=== PATIENT | female | born 1955 | race Caucasian/White ===

== ENCOUNTER 2017-07-07 13:12 | Emergency (ER) | payer MEDICARE, OTHER ==
[2017-07-07 14:10] VITALS: BP 121/55; BMI 26.9
[2017-07-07] MEDS ORDERED: SODIUM CHLORIDE 1,000 ML IV STA ×2 (14:21→16:24)
[2017-07-07] MEDS ORDERED: ACETAMINOPHEN 1000 MG/100 ML VIAL (NON FORMULARY) IVPB ONE (14:22)
[2017-07-07] MEDS ORDERED: ONDANSETRON 4 MG/2 ML VIAL IVPUSH ONE (14:22)
[2017-07-07 14:55] LABS: URINE APPEARANCE SLCLOUDY; URINE BILIRUBIN NEGATIVE (NEGATIVE); URINE BLOOD 2+ (NEGATIVE); URINE COLOR AMBER; URINE GLUCOSE (UA) 3+ (NEGATIVE); URINE KETONE 1+ (NEGATIVE); URINE NITRITE POSITIVE (NEGATIVE); URINE UROBILINOGEN 4.0 E.U/dl mg/dL (0.2-1.0)
[2017-07-07] MEDS ORDERED: ONDANSETRON 4 MG/2 ML VIAL ONE (15:11)
[2017-07-07] MEDS ORDERED: ACETAMINOPHEN INJECTION 100 ML IVPB ONE (15:11)
[2017-07-07 15:16] LABS: BASO % 0.6 % (0-2.0); EOS % 0.3 % (0-4.5); HEMATOCRIT 41.2 % (32.4-45.2); HEMOGLOBIN 13.8 GM/dL (10.7-15.3); LYMPH % 13.8 % (8-40); MCH 29.3 pg (25.7-33.7); MCHC 33.6 g/dl (32.0-36.0); MEAN PLT VOLUME 8.2 fl (7.5-11.1); MONO % 14.1 % (3.8-10.2); NEUT % 71.2 % (42.8-82.8); PLATELET COUNT 194 K/MM3 (134-434); RBC 4.73 M/mm3 (3.60-5.2); RDW 13.5 % (11.6-15.6); WHITE BLOOD COUNT 9.1 K/mm3 (4.0-10.0)
[2017-07-07 15:18] LABS: VENOUS PC02 21.3 mmHg (38-52); VENOUS PH 7.52 (7.32-7.42)
[2017-07-07 15:39] LABS: URINE LEUK ESTERASE 2+ (NEGATIVE); URINE PROTEIN 2+ (NEGATIVE)
[2017-07-07] MEDS ORDERED: CEFTRIAXONE 1 GM in DEXTROSE 5%-WATER - 50 ML IVPB ONE (15:41)
[2017-07-07 15:43] LABS: EPI CELLS RARE /HPF (FEW); URINE BACTERIA MANY /hpf (NONE SEEN)
--- NOTE | 2017-07-07 15:46 | PDOC ---
History of Present Illness - General Chief Complaint: Cold Symptoms Stated Complaint: BLOOD SUGAR PROBLEM Time Seen by Provider: 07/07/17 13:36 History Source: Patient Exam Limitations: No Limitations - History of Present Illness Initial Comments: 07/07/17 15:42 61-year-old female presents to the ED with complaints of myalgia, urinary frequency with dark colored urine along with nausea, chills, and one episode of diarrhea since yesterday. Patient states had a urinary tract infection one year ago and states similar symptoms. Patient denies recent travel, recent illness, cough, sore throat, headache, neck pain, chest pain, or abdominal pain. Timing/Duration: 24 hours Severity: mild, moderate Associated Symptoms: reports: fever/chills Past History - Travel Traveled outside of the country in the last 30 days: No - Past Medical History Allergies/Adverse Reactions: Allergies Allergy/AdvReac Type Severity Reaction Status Date / Time No Known Allergies Allergy Verified 07/07/17 14:05 Home Medications: Ambulatory Orders Nitrofurantoin Monohyd/M-Cryst [Macrobid -] 100 mg PO BID #14 capsule 07/07/17 COPD: No Diabetes: Yes - Surgical History Cholecystectomy: Yes - Suicide/Smoking/Psychosocial Hx Smoking History: Current every day smoker Number of Cigarettes Smoked Daily: 3 Information on smoking cessation initiated: No Patient Lives Alone: No Lives with/in: spouse/SO Review of Systems - Review of Systems Able to Perform ROS?: No Constitutional: Yes: Chills, Weakness HEENTM: No: Symptoms Reported Cardiac (ROS): No: Symptoms Reported ABD/GI: Yes: Diarrhea, Nausea : Yes: Frequency, Other Integumentary: No: Symptoms Reported Neurological: No: Symptoms reported *Physical Exam - Vital Signs Last Vital Signs Temp Pulse Resp BP Pulse Ox 100.6 F H 110 H 18 121/55 07/07/17 14:05 07/07/17 14:05 07/07/17 14:05 07/07/17 14:05 - Physical Exam General Appearance: Yes: Nourished, Appropriately Dressed. No: Apparent Distress HEENT: positive: EOMI, LEELA. negative: Pale Conjunctivae Neck: positive: Supple Respiratory/Chest: positive: Lungs Clear, Normal Breath Sounds. negative: Respiratory Distress, Accessory Muscle Use Cardiovascular: positive: Regular Rhythm, Tachycardia. negative: Murmur Gastrointestinal/Abdominal: positive: Soft. negative: Tenderness Musculoskeletal: negative: CVA Tenderness Integumentary: positive: Normal Color, Warm, Moist Neurologic: positive: Motor Strength 5/5 (ambulatory) ED Treatment Course - LABORATORY CBC & Chemistry Diagram: 07/07/17 14:43 07/07/17 14:43 - ADDITIONAL ORDERS Additional order review: Laboratory Results 07/07/17 07/07/17 14:43 14:43 VBG pH 7.52 H POC VBG pCO2 21.3 L POC VBG pO2 103.0 H Mixed VBG HCO3 17.1 L Urine Color Anjelica Urine Appearance Slcloudy Urine pH 6.0 Ur Specific [place] 1.016 Urine Protein 2+ H Urine Glucose (UA) 3+ H Urine Ketones 1+ H Urine Blood 2+ H Urine Nitrite Positive Urine Bilirubin Negative Urine Urobilinogen 4.0 e.u/dl H 07/07/17 14:43 Influenza Types A,B Antigen ([facility]) - Preliminary Nasopharyngeal Swab - Preliminary 07/07/17 14:43 RBC 4.73 MCV 87.0 MCHC 33.6 RDW 13.5 MPV 8.2 Neutrophils % 71.2 Lymphocytes % 13.8 Monocytes % 14.1 H Eosinophils % 0.3 Basophils % 0.6 - RADIOLOGY Radiology Studies Ordered: Category Date Time Status CHEST X-RAY PORTABLE* [RAD] Stat Radiology 07/07/17 14:21 Ordered - Medications Given in the ED: ED Medications Discontinued Medications Generic Name Dose Route Start Last Admin Trade Name Freq PRN Reason Stop Dose Admin Acetaminophen 1,000 mg 07/07/17 14:22 07/07/17 15:19 Ofirmev Injection - IVPB 07/07/17 14:23 1,000 mg ONCE ONE Administration Sodium Chloride 1,000 mls @ 1,000 mls/hr 07/07/17 14:21 07/07/17 15:19 Normal Saline - IV 07/07/17 15:20 1,000 mls/hr ASDIR STA Administration Ondansetron HCl 4 mg 07/07/17 14:22 07/07/17 15:19 Zofran Injection IVPUSH 07/07/17 14:23 4 mg ONCE ONE Administration Medical Decision Making - Medical Decision Making 07/07/17 15:03 Patient here with complaints of chills, myalgia, weakness, dark colored urine and urinary frequency along with nausea and diarrhea. Patient on exam had no acute findings except for tachycardia low-grade temp. Patient ordered for septic workup including influenza. Patient was ordered IV Tylenol and Zofran. 07/07/17 15:54 Laboratory Tests 07/07/17 07/07/17 07/07/17 14:43 14:43 14:43 WBC 9.1 Hgb 13.8 Hct 41.2 Plt Count 194 Neutrophils % 71.2 VBG pH 7.52 H POC VBG pCO2 21.3 L POC VBG pO2 103.0 H Mixed VBG HCO3 17.1 L Urine Protein 2+ H Urine Glucose (UA) 3+ H Urine Ketones 1+ H Urine Nitrite Positive Ur Leukocyte Esterase Pending Laboratory Tests 07/07/17 07/07/17 14:43 14:43 Sodium 132 L Potassium 3.1 L Chloride 99 Carbon Dioxide 19 L Anion Gap 14 BUN 13 Creatinine 0.6 Random Glucose 251 H Lactic Acid 1.3 Calcium 9.3 Total Bilirubin 1.6 H AST 33 ALT 51 Alkaline Phosphatase 157 H Total Protein 6.6 Albumin 3.0 L 07/07/17 15:55 Patient ordered for 1 g of ceftriaxone. Influenza negative. Patient ordered for second liter of fluid along with K Dur 40 mEq by mouth. 07/07/17 17:12 Patient revitalized and states feeling much better. Patient has approximately 500 mL left in the bag from her second liter of fluid. Patient will be discharged home with Macrobid 07/07/17 17:28 07/07/17 17:29 *DC/Admit/Observation/Transfer Diagnosis at time of Disposition: UTI (urinary tract infection) Qualifiers: Urinary tract infection type: acute cystitis Hematuria presence: with hematuria Qualified Code(s): N30.01 - Acute cystitis with hematuria - Prescriptions Prescriptions: Nitrofurantoin Monohyd/M-Cryst [Macrobid -] 100 mg PO BID #14 capsule - Referrals Referrals: Romy Lutz MD [Primary Care Provider] - - Patient Instructions Printed Discharge Instructions: DI for Urinary Tract Infection (UTI) Additional Instructions: Please take macrobid starting tomorrow. Take Tylenol for fever. Drink plenty of fluids - Post Discharge Activity
[2017-07-07] MEDS ORDERED: CEFTRIAXONE 1 GM/50 ML BAG ONE (15:54)
[2017-07-07 15:57] LABS: ALK PHOS 157 U/L (45-117); ANION GAP 14 (8-16); BILIRUBIN,TOTAL 1.6 mg/dL (0.2-1.0); BLOOD UREA NITROGEN 13 mg/dL (7-18); CALCIUM 9.3 mg/dL (8.5-10.1); CHLORIDE 99 mmol/L (98-107); CO2 19 mmol/L (21-32); CREATININE 0.6 mg/dL (0.55-1.02); GLUCOSE,RANDOM 251 mg/dL (74-106); POTASSIUM 3.1 mmol/L (3.5-5.1); SGOT/AST 33 U/L (15-37); SGPT/ALT 51 U/L (12-78); SODIUM 132 mmol/L (136-145); TOT PROT 6.6 g/dl (6.4-8.2)
[2017-07-07] MEDS ORDERED: POTASSIUM CHLORIDE TABS 20 MEQ TABLET.ER (FP) PO ONE ×2 (16:24→16:28)
[2017-07-07 17:13] VITALS: PULSE 90; TEMP 99
--- NOTE | 2017-07-08 12:30 | EKG ---
Test Reason : Blood Pressure : / mmHG Vent. Rate : 118 BPM Atrial Rate : 118 BPM P-R Int : 136 ms QRS Dur : 078 ms QT Int : 320 ms P-R-T Axes : 043 045 043 degrees QTc Int : 448 ms SINUS TACHYCARDIA WITH PREMATURE ATRIAL COMPLEXES OTHERWISE NORMAL ECG NO PREVIOUS ECGS AVAILABLE Confirmed by LEIGH ANN TURCIOS MD ([id number]) on 07/08/2017 12:30:05 PM Referred By: Confirmed By:LEIGH ANN TURCIOS MD
== END 2017-07-07 18:28 | disposition home or self-care (01) ==
LOC: JER 13:12
PROC: 3E033NZ Introduction of Analgesics, Hypnotics, Sedatives into Peripheral Vein, Percutaneous Approach (ICD-10-PCS; principal; 2017-07-07)
PROC: 3E033GC Introduction of Other Therapeutic Substance into Peripheral Vein, Percutaneous Approach (ICD-10-PCS; 2017-07-07)
DX: N30.01 Acute cystitis with hematuria (principal); E11.9 Type 2 diabetes mellitus without complications; F17.210 Nicotine dependence, cigarettes, uncomplicated
CPT/HCPCS: 36415; 71046-TC; 80053; 81003; 81015; 82803; 83605; 85025; 87040; 87086; 87186; 87804; 93005; 93010; 99283-25

== ENCOUNTER 2020-07-09 09:14 | Emergency (ER) | payer MEDICARE, OTHER ==
[2020-07-09 09:35] VITALS: BMI 30.2
[2020-07-09 10:32] LABS: BASO % 0.6 % (0-2.0); EOS % 1.7 % (0-4.5); HEMATOCRIT 40.4 % (32.4-45.2); LYMPH % 32.4 % (8-40); MCH 30.1 pg (25.7-33.7); MCHC 34.7 g/dl (32.0-36.0); MEAN CELL VOLUME 86.7 fl (80-96); MEAN PLT VOLUME 8.2 fl (7.5-11.1); MONO % 6.1 % (3.8-10.2); NEUT % 59.2 % (42.8-82.8); PLATELET COUNT 264 K/MM3 (134-434); RBC 4.66 M/mm3 (3.60-5.2); RDW 13.4 % (11.6-15.6); WHITE BLOOD COUNT 7.4 K/mm3 (4.0-10.0)
[2020-07-09 10:37] LABS: EPI CELLS >36 /uL (0-25.1); HYALINE CASTS 26 /uL (0-3.1); PH,URINE 5.5 (5.0-8.0); URINE APPEARANCE CLOUDY; URINE BACTERIA >9,000 /uL (0-1359); URINE BILIRUBIN NEGATIVE (NEGATIVE); URINE COLOR YELLOW; URINE GLUCOSE (UA) NEGATIVE (NEGATIVE); URINE KETONE TRACE (NEGATIVE); URINE LEUK ESTERASE 2+ (NEGATIVE); URINE NITRITE POSITIVE (NEGATIVE); URINE PROTEIN TRACE (NEGATIVE); URINE RBC 18 /uL (0-23.9); URINE WBC 562 /uL (0-25.8)
[2020-07-09 10:54] LABS: ALBUMIN 3.8 g/dl (3.4-5.0); CALCIUM 9.3 mg/dL (8.5-10.1)
[2020-07-09 10:55] LABS: BLOOD UREA NITROGEN 13.8 mg/dL (7-18)
[2020-07-09 10:57] LABS: CREATININE 0.6 mg/dL (0.55-1.3)
[2020-07-09 10:59] LABS: BILIRUBIN,TOTAL 0.8 mg/dL (0.2-1); TOT PROT 7.1 g/dl (6.4-8.2)
[2020-07-09 11:59] LABS: URINE CRYSTALS PRESENT /hpf
[2020-07-09 13:01] VITALS: BP 137/81; PULSE 73; TEMP 98.8
== END 2020-07-09 13:56 | disposition home or self-care (01) ==
LOC: JER 09:14
DX: N39.0 Urinary tract infection, site not specified (principal)
CPT/HCPCS: 36415; 74177-TC; 80053; 81003; 85025; 87086; 87186; 99285-25; Q9967

== ENCOUNTER 2020-07-27 14:08 | Emergency (ER) | payer MEDICARE, OTHER ==
[2020-07-27 14:15] VITALS: BP 108/71; PULSE 94; TEMP 97.8; BMI 27.6
[2020-07-27] MEDS ORDERED: SODIUM PHOSPHATE/NA BIPHOS 133 ML ENEMA PR ONE (16:56)
[2020-07-27] MEDS ORDERED: LACTULOSE 20 GM/30 ML UDC (FOR ORAL USE ONLY) PO ONE (16:56)
[2020-07-27] MEDS ORDERED: LACTULOSE 20 GM/30 ML UDC (FOR ORAL USE ONLY) ONE (17:26)
== END 2020-07-27 18:58 | disposition home or self-care (01) ==
LOC: JER 14:08
DX: K59.00 Constipation, unspecified (principal)
CPT/HCPCS: 74019-TC-FY; 99283-25

== ENCOUNTER 2024-06-15 04:07 | Day surgery (SDC) | payer OTHER ==
[2024-06-14 10:12] VITALS: BMI 28.0
[2024-06-15] MEDS ORDERED: LIDOCAINE HCL/PF 1% SDV 5ML VIAL ONE (07:21)
[2024-06-15] MEDS: BUPIVACAINE HCL/PF 0.5% (5MG/ML) 10 ML VIAL IJ ONE ×4 (13:15)
[2024-06-15] MEDS: LIDOCAINE HCL 1% PRESERVATIVE FREE - 30ML VIAL IJ ONE ×2 (13:15)
[2024-06-15] MEDS: IOHEXOL 180 MG/1 ML ML IJ ONE ×2 (13:17)
[2024-06-15] MEDS: TRIAMCINOLONE ACETONIDE 40 MG/ML 10 ML VIAL IJ ONE ×2 (13:19)
[2024-06-15 14:51] VITALS: RESP 20; TEMP 97.3
[2024-06-15 14:52] VITALS: BP 142/81; PULSE 83
[2024-06-15] MEDS ORDERED: ACETAMINOPHEN 500 MG TABLET (FP) PO PRN (18:11)
== END 2024-06-15 14:32 | disposition home or self-care (01) ==
LOC: JASU-SURG 04:07
PROVIDERS: ATTEND Pain Medicine Pain Medicine
PROC: 3E0U3BZ Introduction of Anesthetic Agent into Joints, Percutaneous Approach (ICD-10-PCS; 2024-06-15)
PROC: 3E0U33Z Introduction of Anti-inflammatory into Joints, Percutaneous Approach (ICD-10-PCS; principal; 2024-06-15 11:30)
DX: M16.11 Unilateral primary osteoarthritis, right hip (principal)
CPT/HCPCS: 76000-TC-FY

== ENCOUNTER 2024-09-14 06:59 | Day surgery (SDC) | payer OTHER ==
[2024-09-13 08:03] VITALS: BMI 28.0
[2024-09-14] MEDS ORDERED: LIDOCAINE HCL/PF 1% SDV 5ML VIAL ONE (07:30)
[2024-09-14] MEDS ORDERED: BUPIVACAINE HCL/PF 0.75% 10 ML VIAL ONE (07:30)
[2024-09-14 13:08] VITALS: RESP 18
[2024-09-14 13:56] VITALS: PULSE 76
[2024-09-14] MEDS ORDERED: ACETAMINOPHEN 500 MG TABLET (FP) ONE (13:57)
[2024-09-14] MEDS: ACETAMINOPHEN 500 MG TABLET (FP) PO PRN (14:00)
[2024-09-14 14:50] VITALS: BP 180/80; TEMP 97
== END 2024-09-14 14:50 | disposition home or self-care (01) ==
LOC: JASU-SURG 06:59
PROVIDERS: ATTEND Pain Medicine Pain Medicine
PROC: 3E0T3BZ Introduction of Anesthetic Agent into Peripheral Nerves and Plexi, Percutaneous Approach (ICD-10-PCS; principal; 2024-09-14 13:39)
DX: M47.816 Spondylosis without myelopathy or radiculopathy, lumbar region (principal)
CPT/HCPCS: 76000-TC-FY

== ENCOUNTER 2024-10-06 12:18 | Day surgery (SDC) | payer OTHER ==
[2024-10-04 12:06] VITALS: BMI 28.0
[~2024-10-06 12:18] MED LIST: ACETAMINOPHEN 500 MG TABLET (FP) PO PRN
[2024-10-06 17:10] VITALS: BP 139/56; PULSE 88; RESP 16; TEMP 97.8
== END 2024-10-06 17:10 | disposition home or self-care (01) ==
LOC: JASU-SURG 12:18
PROVIDERS: ATTEND Pain Medicine Pain Medicine
PROC: 3E0R3BZ Introduction of Anesthetic Agent into Spinal Canal, Percutaneous Approach (ICD-10-PCS; 2024-10-06)
PROC: 3E0R33Z Introduction of Anti-inflammatory into Spinal Canal, Percutaneous Approach (ICD-10-PCS; principal; 2024-10-06 11:30)
DX: M48.061 Spinal stenosis, lumbar region without neurogenic claudication (principal); M54.16 Radiculopathy, lumbar region
CPT/HCPCS: 76000-TC-FY

== ENCOUNTER 2024-10-06 17:19 | Observation (INO) | payer OTHER ==
[2024-10-06 18:23] LABS: ABSOLUTE IMMATURE GRANULOCYTES 0.01 x10^3/uL (0.0-0.031); BASOPHILS # 0.03 x10^3/uL (0.01-0.08); EOSINOPHIL % 0.6 % (0.7-5.8); EOSINOPHILS # 0.04 x10^3/uL (0.04-0.36); HEMATOCRIT 40.2 % (34.1-44.9); HEMOGLOBIN 13.6 g/dL (11.2-15.7); MCHC 33.8 g/dl (32.2-35.5); MEAN CELL VOLUME 85.2 fl (79.4-94.8); MEAN PLT VOLUME 9.4 fl (9.4-12.3); MONOCYTE # 0.17 x10^3/uL (0.24-0.86); MONOCYTE % 2.4 % (4.7-12.5); PLATELET COUNT 258 x10^3/uL (182-369); RDW 12.5 % (12.4-16.4)
[2024-10-06 18:44] LABS: POTASSIUM 3.8 mmol/L (3.5-5.1)
[2024-10-06 18:46] LABS: ALBUMIN 3.8 g/dl (3.4-5.0); BLOOD UREA NITROGEN 22.2 mg/dL (7-18); CALCIUM 9.5 mg/dL (8.5-10.1)
[2024-10-06 18:50] LABS: CREATININE 0.9 mg/dL (0.55-1.3)
[2024-10-06 18:51] LABS: BILIRUBIN,TOTAL 0.6 mg/dL (0.2-1); TOT PROT 7.4 g/dl (6.4-8.2)
[2024-10-06] MEDS ORDERED: ACETAMINOPHEN 500 MG TABLET (FP) ONE (20:03)
[2024-10-06] MEDS: ACETAMINOPHEN 500 MG TABLET (FP) PO ONE (20:09)
[2024-10-06] MEDS ORDERED: MORPHINE SULFATE 2 MG/ML SYRINGE IVPUSH PRN (22:40)
[2024-10-06] MEDS ORDERED: DOCUSATE SODIUM 100 MG CAPSULE (FP) PO ONE (23:02)
[2024-10-06] MEDS: POLYETHYLENE GLYCOL (HEALTHYLAX) 3350 17 GM PACKET PO SCH (23:37)
[2024-10-06] MEDS: MAGNESIUM CITRATE 300 ML BOTTLE PO ONE (23:37)
[2024-10-06] MEDS: SENNOSIDES/DOCUSATE COMBO (SENNA PLUS) TABLET (UD) PO SCH (23:37)
[2024-10-07 01:10] VITALS: BMI 28.0
[2024-10-07] MEDS: INSULIN ASPART SLIDING SCALE (NOVOLOG) 1 VIAL SQ SCH (07:52)
[2024-10-07 08:36] LABS: HEMATOCRIT 39.7 % (34.1-44.9); HEMOGLOBIN 13.4 g/dL (11.2-15.7); MCHC 33.8 g/dl (32.2-35.5); MEAN CELL VOLUME 84.8 fl (79.4-94.8); MEAN PLT VOLUME 10.1 fl (9.4-12.3); PLATELET COUNT 230 x10^3/uL (182-369); RDW 12.6 % (12.4-16.4)
[2024-10-07 08:55] LABS: POTASSIUM 4.1 mmol/L (3.5-5.1)
[2024-10-07 09:00] LABS: ALBUMIN 3.6 g/dl (3.4-5.0); BLOOD UREA NITROGEN 23.5 mg/dL (7-18); CALCIUM 9.7 mg/dL (8.5-10.1)
[2024-10-07 09:06] LABS: TOT PROT 7.5 g/dl (6.4-8.2)
[2024-10-07 09:07] LABS: CREATININE 0.9 mg/dL (0.55-1.3)
[2024-10-07 09:10] LABS: BILIRUBIN,TOTAL 0.6 mg/dL (0.2-1)
[2024-10-07] MEDS: LOSARTAN POTASSIUM 25 MG TABLET PO SCH (09:48)
[2024-10-07] MEDS: PANTOPRAZOLE 20 MG TABLET PO SCH (09:48)
[2024-10-07] MEDS: ENOXAPARIN NA (PORCINE) 40 MG/0.4 ML DISP.SYRIN SQ SCH (09:48)
[2024-10-07] MEDS: ACETAMINOPHEN 325 MG TABLET (FP) PO PRN (10:22)
[2024-10-07] MEDS: GABAPENTIN 100 MG CAPSULE PO SCH (14:11)
[2024-10-07] MEDS: oxyCODONE HCL 5 MG TABLET PO PRN (21:28)
[2024-10-07] MEDS: ATORVASTATIN CA 20 MG TABLET (FP) PO SCH (21:29)
[2024-10-08 06:50] VITALS: RESP 18
[2024-10-08 10:37] LABS: ABSOLUTE IMMATURE GRANULOCYTES 0.03 x10^3/uL (0.0-0.031); BASOPHILS # 0.03 x10^3/uL (0.01-0.08); EOSINOPHIL % 1.1 % (0.7-5.8); EOSINOPHILS # 0.11 x10^3/uL (0.04-0.36); HEMATOCRIT 38.1 % (34.1-44.9); HEMOGLOBIN 12.7 g/dL (11.2-15.7); MCHC 33.3 g/dl (32.2-35.5); MEAN CELL VOLUME 86.4 fl (79.4-94.8); MEAN PLT VOLUME 9.5 fl (9.4-12.3); MONOCYTE # 0.81 x10^3/uL (0.24-0.86); MONOCYTE % 8.1 % (4.7-12.5); PLATELET COUNT 248 x10^3/uL (182-369); RDW 12.9 % (12.4-16.4)
[2024-10-08 10:58] LABS: POTASSIUM 3.5 mmol/L (3.5-5.1)
[2024-10-08 11:01] VITALS: BP 138/84; PULSE 76; TEMP 98.9
[2024-10-08 11:02] LABS: ALBUMIN 3.1 g/dl (3.4-5.0); BLOOD UREA NITROGEN 29.3 mg/dL (7-18); CALCIUM 8.8 mg/dL (8.5-10.1)
[2024-10-08 11:03] LABS: MAGNESIUM 2.6 mg/dL (1.8-2.4)
[2024-10-08 11:09] LABS: BILIRUBIN,TOTAL 0.7 mg/dL (0.2-1); TOT PROT 6.3 g/dl (6.4-8.2)
== END 2024-10-08 11:15 | disposition home health service (06) ==
LOC: JER 17:19 → JERBED 23:03 → J7W 10-07 01:16
PROVIDERS: ADMIT Hospitalist
PROC: 3E023GC Introduction of Other Therapeutic Substance into Muscle, Percutaneous Approach (ICD-10-PCS; principal; 2024-10-06)
PROC: 3E013VG Introduction of Insulin into Subcutaneous Tissue, Percutaneous Approach (ICD-10-PCS; 2024-10-06)
DX: G89.29 Other chronic pain (principal); M54.9 Dorsalgia, unspecified; E11.9 Type 2 diabetes mellitus without complications; I10 Essential (primary) hypertension; F45.42 Pain disorder with related psychological factors; M19.90 Unspecified osteoarthritis, unspecified site; M54.31 Sciatica, right side; R33.8 Other retention of urine; E78.5 Hyperlipidemia, unspecified; R51.9 Headache, unspecified; K59.09 Other constipation
CPT/HCPCS: 36415; 70450-TC; 72131-TC; 80053; 82962; 83735; 85025; 85027; 93005; 93010; 96372; 97116-GP; 97162-GP; 99285-25; G0378

== ENCOUNTER 2025-05-04 11:39 | Emergency (ER) | payer OTHER ==
[2025-05-04 11:51] VITALS: RESP 20; BMI 29.0
[2025-05-04] MEDS: ACETAMINOPHEN 1000 MG/100 ML BAG IVPB ONE (14:39)
[2025-05-04] MEDS: ACETAMINOPHEN 500 MG TABLET (FP) PO ONE (15:11)
[2025-05-04] MEDS: LIDOCAINE 5% TOPICAL PATCH TP ONE (16:35)
[2025-05-04] MEDS ORDERED: LIDOCAINE 5% TOPICAL PATCH ONE (16:37)
[2025-05-04 17:44] VITALS: BP 174/74; PULSE 82; TEMP 98.4
[2025-05-04] MEDS ORDERED: LIDOCAINE PATCH REMOVAL MC SCH (22:00)
== END 2025-05-04 20:42 | disposition home or self-care (01) ==
LOC: JER 11:39
DX: G89.18 Other acute postprocedural pain (principal); M25.551 Pain in right hip; M79.89 Other specified soft tissue disorders
CPT/HCPCS: 73502-TC-RT-FY; 93971-TC-RT; 99284-25